=== PATIENT | male | born 1995 | race Caucasian/White ===

== ENCOUNTER 2020-02-16 16:54 | Emergency (ER) | payer OTHER ==
[2020-02-16] MEDS ORDERED: Racepinephrine INH Solution 2.25% IH ONE (17:00)
[2020-02-16] MEDS ORDERED: Sodium Chloride 3 ML UD NEBULES IH ONE (17:01)
--- NOTE | 2020-02-16 17:03 | ERPHSYRPT ---
- History of Present Illness Time Seen by Provider: 02/16/20 17:00 Source: patient Exam Limitations: no limitations Physician History: 24 years old male presented in the ER with chief complaint of throat swelling and difficulty breathing after he has taken steroid for pharyngitis since yesterday. Patient reported he is having sore throat for the last 3 days, was evaluated at urgent care yesterday, and was given prednisone for viral pharyngitis and since he started taking he started to have more swelling and soreness in the throat with some difficulty breathing. He also feels some swelling in the tongue/uvula. Denies any wheezing or stridors. Denies any history of allergic reaction/anaphylactic reaction in the past. No fever or chills reported. Timing/Duration: today, gradual onset, worse Severity: moderate Modifying Factors: Improves With: nothing Associated Symptoms: shortness of breath Allergies/Adverse Reactions: Iodinated Contrast Media Allergy (Severe, Verified 02/16/20 18:27) Swelling shrimp Allergy (Severe, Verified 02/16/20 18:27) Swelling Home Medications: Prednisone 20 mg [Deltasone 20 mg] 20 mg PO DAILY 02/16/20 [History] Hx Tetanus, Diphtheria Vaccination/Date Given: Yes Hx Influenza Vaccination/Date Given: No Hx Pneumococcal Vaccination/Date Given: No - Review of Systems Constitutional: No Symptoms Eyes: No Symptoms Ears, Nose, & Throat: Throat Pain, Throat Swelling Respiratory: Dyspnea, No Stridor Cardiac: No Symptoms Abdominal/Gastrointestinal: No Symptoms Genitourinary Symptoms: No Symptoms Musculoskeletal: No Symptoms Skin: No Symptoms Neurological: No Symptoms Psychological: No Symptoms Endocrine: No Symptoms Hematologic/Lymphatic: No Symptoms Immunological/Allergic: No Symptoms - Past Medical History Pertinent Past Medical History: No Neurological History: Other Cardiac History: No Pertinent History Respiratory History: No Pertinent History Endocrine Medical History: No Pertinent History Musculoskeletal History: No Pertinent History - Past Surgical History Past Surgical History: No - Social History Smoking Status: Never smoker Exposure to second hand smoke: No Drug Use: none Patient Lives Alone: No - Nursing Vital Signs Nursing Vital Signs: Initial Vital Signs Temperature 98.7 F 02/16/20 16:57 Pulse Rate 121 H 02/16/20 16:57 Respiratory Rate 22 02/16/20 16:57 Blood Pressure 132/84 02/16/20 16:57 O2 Sat by Pulse Oximetry 99 07/22/20 16:57 Pain Scale Pain Intensity 6 - Physical Exam General Appearance: no apparent distress Eye Exam: PERRL/EOMI, eyes nml inspection Ears, Nose, Throat Exam: pharyngeal erythema, tonsillar exudate, other (Diffuse erythema of pharynx with swollen uvula. Posterior pharynx well visible. No obvious swelling of tongue.) Respiratory Exam: normal breath sounds, lungs clear Cardiovascular Exam: regular rate/rhythm, normal heart sounds Gastrointestinal/Abdomen Exam: soft, normal bowel sounds, No tenderness Back Exam: normal inspection Extremity Exam: normal inspection Neurologic Exam: alert, oriented x 3, cooperative Skin Exam: normal color SpO2 Interpretation: normal, O2 applied O2 Delivery: Room Air - Course Nursing assessment & vital signs reviewed: Yes Ordered Tests: Active Orders 24 hr Category Date Time Status IV Insertion STAT Care 02/16/20 16:59 Active Pulse Oximetry (ED) STAT Care 02/16/20 17:31 Active CHEST 1 VIEW (PORTABLE) Stat Exams 02/16/20 16:59 Taken NECK WO CONTRAST [CT] Stat Exams 02/16/20 17:56 Taken CBC W DIFF Stat Lab 02/16/20 17:22 Completed CMP Stat Lab 02/16/20 17:22 Completed Lactic Acid Stat Lab 02/16/20 17:10 Completed VBG [VENOUS BLOOD GAS] Stat Lab 02/16/20 17:10 Completed Respiratory Therapy Assessment DAILY RT 02/16/20 17:19 Active Medication Summary Generic Name Dose Route Start Last Admin Trade Name Freq PRN Reason Stop Dose Admin Sodium Chloride 3 ml 02/16/20 17:15 02/16/20 17:10 Sodium Chloride 3 Ml Ud Nebules IH 03/17/20 17:14 3 ml [id number] SAUL Administration Discontinued Medications Generic Name Dose Route Start Last Admin Trade Name Freq PRN Reason Stop Dose Admin Albuterol Sulfate 2.5 mg 02/16/20 16:59 02/16/20 17:09 Proventil 2.5 Mg/3 Ml Neb IH 02/16/20 17:00 2.5 mg STAT ONE Administration Albuterol Sulfate Confirm 02/16/20 17:05 Proventil 2.5 Mg/3 Ml Neb Administered 02/16/20 17:06 Dose 2.5 mg IH .STK-MED ONE Diphenhydramine HCl 25 mg 02/16/20 16:59 02/16/20 17:09 Benadryl 50 Mg/Ml IV 02/16/20 17:00 25 mg STAT ONE Administration Diphenhydramine HCl Confirm 02/16/20 17:04 Benadryl 50 Mg/Ml Administered 02/16/20 17:05 Dose 50 mg .ROUTE .STK-MED ONE Epinephrine Confirm 02/16/20 17:00 Racepinephrine Inh Solution 2.25% Administered 02/16/20 17:01 Dose 0.5 ml IH .STK-MED ONE Epinephrine 0.5 ml 02/16/20 17:00 02/16/20 17:10 Racepinephrine Inh Solution 2.25% IH 02/16/20 17:01 0.5 ml STAT ONE Administration Famotidine 20 mg 02/16/20 16:59 02/16/20 17:09 Pepcid 20 Mg Vial IV 02/16/20 17:00 20 mg STAT ONE Administration Famotidine Confirm 02/16/20 17:04 Pepcid 20 Mg Vial Administered 02/16/20 17:05 Dose 20 mg IV .STK-MED ONE Sodium Chloride Confirm 02/16/20 17:01 Sodium Chloride 3 Ml Ud Nebules Administered 02/16/20 17:02 Dose 3 ml IH .STK-MED ONE Lab/Rad Data: Laboratory Result Diagrams 02/16/20 17:22 02/16/20 17:22 Laboratory Results 02/16/20 02/16/20 02/16/20 Range/Units 17:22 17:22 17:10 WBC 15.7 H (4.0-10.5) K/mm3 RBC 5.41 (4.1-5.6) M/mm3 Hgb 15.5 (12.5-18.0) gm/dl Hct 46.4 (42-50) % MCV 85.8 (78-100) fl MCH 28.7 (26-32) pg MCHC 33.4 (32-36) g/dl RDW 15.4 H (11.5-14.0) % Plt Count 335 (150-450) K/mm3 MPV 9.4 (7.5-11.0) fl Gran % 87.2 H (36.0-66.0) % Eos # (Auto) 0.01 (0-0.5) Absolute Lymphs (auto) 0.73 L (1.0-4.6) Absolute Monos (auto) 1.22 (0.0-1.3) Lymphocytes % 4.7 L (24.0-44.0) % Monocytes % 7.8 (0.0-12.0) % Eosinophils % 0.1 (0.00-5.0) % Basophils % 0.2 (0.0-0.4) % Absolute Granulocytes 13.69 H (1.4-6.9) Basophils # 0.03 (0-0.4) pO2/FiO2 Ratio 21.0 % VBG pH 7.37 (7.32-7.42) VBG pCO2 at Pat Temp 42 (42-55) mm/Hg VBG pO2 at Pat Temp 44 H (25-40) mm/Hg VBG HCO3 24.3 (22-28) meq/L VBG O2 Sat (Diego) 81.3 L (95-100) VBG Base Excess -1.1 (-2.0-2.0) VBG Hemoglobin 16.1 VBG Carboxyhemoglobin 3.6 (0.0-6.9) % T HGB POC Potassium 3.8 (3.5-5.1) Sodium 139 (137-145) mmol/L Potassium 3.7 (3.5-5.1) mmol/L Chloride 106 (98-107) mmol/L Carbon Dioxide 24 (22-30) mmol/L Anion Gap 12.2 (5-15) MEQ/L BUN 5 L (9-20) mg/dL Creatinine 0.77 (0.66-1.25) mg/dL Estimated GFR > 60.0 ML/MIN Glucose 116 H (74-106) mg/dL Lactic Acid 2.3 H (0.4-2.0) Calcium 9.4 (8.4-10.2) mg/dL Total Bilirubin 1.30 (0.2-1.3) mg/dL AST 23 (17-59) U/L ALT 36 (0-50) U/L Alkaline Phosphatase 60 (38-126) U/L Serum Total Protein 7.7 (6.3-8.2) g/dL Albumin 4.3 (3.5-5.0) g/dL - Progress Progress: improved, re-examined Progress Note: 02/16/20 19:25 24 years old is evaluated for worsening throat swelling with some difficulty breathing and swallowing after taking prednisone. Is given racemic epi and albuterol neb treatment along with Benadryl, Pepcid, on reevaluation feeling much better. He has a white count of 15, I have obtained CT neck which did rule out epiglottitis or any other acute findings. Patient is satting around 99/100% on room air with no distress. Chest x-ray negative for any acute cardiopulmonary findings. Feeling much better. Patient does have tonsillar exudates and some swelling. I would start him on Augmentin and will continue with Benadryl and Pepcid to go home. Recommended outpatient follow-up. Patient is observed more than 2 hours and did not show any signs of rebound/worsening. Stable for discharge. Discussed signs symptoms of worsening needing return to ER with patient and mom seems understanding. Counseled pt/family regarding: lab results, diagnosis, need for follow-up, rad results - Departure Departure Disposition: Home Clinical Impression: Acute pharyngitis Qualifiers: Pharyngitis/tonsillitis etiology: unspecified etiology Qualified Code(s): J02.9 - Acute pharyngitis, unspecified Allergic reaction caused by a drug Qualifiers: Encounter type: initial encounter Qualified Code(s): T78.40XA - Allergy, unspecified, initial encounter Condition: Stable Critical Care Time: Yes Critical Care Time(excluding separately billable procedures): Critical 30-74 mins Referrals: J LUIS JAVIER DO [ACTIVE STAFF] - DOCTOR,NO FAMILY [Primary Care Provider] - (1-2 days for re evaluation) Instructions: Anaphylaxis (DC) Additional Instructions: Warm salt water gargles. Take Tylenol/ibuprofen as needed. Use EpiPen as needed. Continue with antibiotics. Return to ER for worsening throat pain, swelling, difficulty breathing/stridor etc. Prescriptions: diphenhydrAMINE HCL [Benadryl] 25 mg PO Q6HPRN PRN #20 capsule PRN Reason: Allergies Amox Tr/Potass Clav. 875 mg [Augmentin 875-125 Tablet] 875 mg PO BID 10 Days #20 tablet EPINEPHrine [Epipen 0.3 MG] 0.3 mg IJ CLARIFY PRN #1 ml PRN Reason: Allergies Famotidine 20 mg [Pepcid 20 MG] 20 mg PO BID #10 tablet
[2020-02-16] MEDS ORDERED: BENADRYL 50 MG/ML ONE (17:04)
[2020-02-16] MEDS ORDERED: Pepcid 20 MG VIAL IV ONE (17:04)
[2020-02-16] MEDS ORDERED: PROVENTIL 2.5 MG/3 ML NEB IH ONE (17:05)
[2020-02-16] MEDS: PROVENTIL 2.5 MG/3 ML NEB IH ONE (17:09)
[2020-02-16] MEDS: Pepcid 20 MG VIAL IV ONE (17:09)
[2020-02-16] MEDS: BENADRYL 50 MG/ML IV ONE (17:09)
[2020-02-16] MEDS: Racepinephrine INH Solution 2.25% IH ONE (17:10)
[2020-02-16] MEDS: Sodium Chloride 3 ML UD NEBULES IH SCH (17:10)
[2020-02-16 17:29] LABS: Absolute Neutrophil Ct (ANC) 13.69 (1.4-6.9); BASOPHIL % 0.2 % (0.0-0.4); Basophil (Absolute #) 0.03 (0-0.4); Eosinophil % 0.1 % (0.00-5.0); Eosinophil (Absolute #) 0.01 (0-0.5); Hematocrit 46.4 % (42-50); Hemoglobin 15.5 gm/dl (12.5-18.0); Lymphocyte (Absolute #) 0.73 (1.0-4.6); Lymphocytes % 4.7 % (24.0-44.0); Mean Cell Volume 85.8 fl (78-100); Mean Corpuscular Hemoglobin 28.7 pg (26-32); Mean Corpuscular Hgb Concent. 33.4 g/dl (32-36); Mean Platelet Volume 9.4 fl (7.5-11.0); Monocyte (Absolute #) 1.22 (0.0-1.3); Monocytes % 7.8 % (0.0-12.0); Neutrophil % 87.2 % (36.0-66.0); Platelet Count 335 K/mm3 (150-450); Red Blood Count 5.41 M/mm3 (4.1-5.6); Red Cell Distribution Width 15.4 % (11.5-14.0); White Blood Count 15.7 K/mm3 (4.0-10.5)
[2020-02-16 17:39] LABS: ALBUMIN 4.3 g/dL (3.5-5.0); ALKALINE PHOSPHATASE 60 U/L (38-126); ANION GAP 12.2 MEQ/L (5-15); BLOOD UREA NITROGEN 5 mg/dL (9-20); CHLORIDE 106 mmol/L (98-107); Calcium 9.4 mg/dL (8.4-10.2); Carbon Dioxide 24 mmol/L (22-30); Creatinine 1 0.77 mg/dL (0.66-1.25); Glucose 116 mg/dL (74-106); Potassium 3.7 mmol/L (3.5-5.1); SGOT/AST 23 U/L (17-59); SGPT/ALT 36 U/L (0-50); SODIUM 139 mmol/L (137-145); Total Protein 7.7 g/dL (6.3-8.2)
[2020-02-16 17:43] LABS: Lactic Acid 2.3 (0.4-2.0); VBG BASE EXCESS -1.1 (-2.0-2.0); VBG CARBOXYHEMOGLOBIN 3.6 % T HGB (0.0-6.9); VBG HCO3- 24.3 meq/L (22-28); VBG HEMOGLOBIN 16.1; VBG O2 SATURATION 81.3 (95-100); VBG POTASSIUM 3.8 (3.5-5.1); VBG pH 7.37 (7.32-7.42)
[2020-02-16 19:11] VITALS: PULSE 84
[2020-02-16] MEDS ORDERED: Augmentin 875-125 Tablet ONE (19:15)
[2020-02-16] MEDS: Augmentin 875-125 Tablet PO ONE (19:16)
[2020-02-16 19:37] VITALS: BP 123/61; O2SAT 99
--- NOTE | 2020-02-16 21:51 | XRAY ---
Exam: AP portable chest film from 02/16/2020. Comparison: None. Indication: Allergic reaction. Findings: Respiratory tubing overlies the right hemithorax. The heart size and contour are normal. The eric and mediastinal structures appear unremarkable. The lungs are adequately inflated and appear clear. Pulmonary vascularity is normal. No pneumothorax or pleural effusion is seen. Minimal convexity of the lower midthoracic spine toward the right is seen. Impression: 1. No air space infiltrates, pulmonary edema, or other acute cardiopulmonary disease is seen.
--- NOTE | 2020-02-16 21:53 | XRAY ---
Exam: CT of the neck without IV contrast from 02/16/2020. CTDI: 17.79 mGy Comparison: None. Indication: 24-year-old male with sore throat/fever, rule out epiglottitis. Patient had "a reaction" to prednisone per patient. He has a seafood/shrimp/iodine allergy. Technique: Non-IV contrast axial images were obtained through the neck. Reconstructed coronal and sagittal images were created and reviewed.. Findings: The epiglottis appears thin and unremarkable. There is no CT evidence of epiglottitis. No prevertebral soft tissue swelling is seen. The hypopharynx and subglottic airway appear unremarkable. There is mild prominence of both tonsils with the left appearing slightly larger than the right. No low attenuation density is seen within either tonsil to suggest an abscess. Correlate with clinical exam. Aryepiglottic folds and vocal cords appear unremarkable. The thyroid gland appears unremarkable. The visualized upper lung gray appear clear. The visualized paranasal sinuses reveals a 7 mm convex soft tissue density at the inferior margin of the left maxillary sinus, perhaps representing a retention cyst, small polyp, or focal mucoperiosteal thickening. A small linear septation is seen at the inferior margin of the right maxillary sinus. The posterior nasopharynx appears unremarkable. The visualized parotid glands and submandibular glands appear unremarkable. No abnormal cervical lymphadenopathy is seen. On axial image #47, there is a 9 mm x 5 mm lymph node adjacent to the lateral margin of the left submandibular gland. I believe there are also a couple small submental lymph node densities, the largest measuring 9 mm in greatest diameter on axial image #45. Impression: 1. I see no CT findings to suggest acute epiglottitis. 2. The tonsils are mildly prominent with the left appearing slightly larger than the right. No low attenuation abscess is seen. Correlate clinically. 3. Other incidental findings, as discussed above.
== END 2020-02-16 19:39 | disposition home or self-care (01) ==
LOC: ED 16:54
DX: J02.9 Acute pharyngitis, unspecified (principal)
CPT/HCPCS: 36000; 36415; 70490; 71045; 80053; 82805; 83605; 85025; 94640; 94760; 96374; 96375; 99284; 99291; J1200; J7609; A9270-GY

== ENCOUNTER 2024-04-08 13:23 | Emergency (ER) | payer OTHER ==
[2024-04-08 13:38] VITALS: TEMP 97.8
[2024-04-08] MEDS ORDERED: BABY ASPIRIN 81 MG CHEW ONE (14:20)
[2024-04-08] MEDS: BABY ASPIRIN 81 MG CHEW PO ONE (14:21)
[2024-04-08 14:25] LABS: Absolute Neutrophil Ct (ANC) 5.21 x10^3/uL (1.78-5.38); BASOPHIL % 0.5 % (0.2-1.2); Basophil (Absolute #) 0.04 x10^3/uL (0.01-0.08); Eosinophil (Absolute #) 0.07 x10^3/uL (0.04-0.54); Hematocrit 44.8 % (40.1-51.0); Hemoglobin 15.3 g/dL (13.7-17.5); IMMATURE GRAN # 0.01 x10^3u/L (0.001-0.031); IMMATURE GRAN % 0.1 % (0.001-0.429); Lymphocyte (Absolute #) 1.47 x10^3/uL (1.32-3.57); Mean Cell Volume 84.5 fL (79.0-92.2); Mean Corpuscular Hemoglobin 28.9 pg (25.7-32.2); Mean Corpuscular Hgb Concent. 34.2 g/dL (32.3-36.5); Monocyte (Absolute #) 0.55 x10^3/uL (0.30-0.82); Monocytes % 7.5 % (5.3-12.2); Neutrophil % 70.9 % (34.0-67.9); Platelet Count 317 x10^3/uL (163-337); Red Cell Distribution Width 12.8 % (11.6-14.4); White Blood Count 7.4 x10^3/uL (4.23-9.07)
--- NOTE | 2024-04-08 14:33 | XRAY ---
Indication: Chest pain. Comparison: February 16, 2020 Portable chest again demonstrates normal heart and lungs. Bony thorax intact again with minimal dextroscoliosis. No new/acute findings.
[2024-04-08 14:39] LABS: ANION GAP 11.9 MEQ/L (5-15); BILIRUBIN,TOTAL 1.2 mg/dL (0.2-1.3); Calcium 9.5 mg/dL (8.4-10.2); Creatinine 1 1.13 mg/dL (0.66-1.25); EST GLOMERULAR FILTRATION RATE 91.9 ML/MIN; Potassium 4.1 mmol/L (3.5-5.1); Total Protein 6.6 g/dL (6.3-8.2)
[2024-04-08] MEDS ORDERED: Sodium Chloride 0.9% 1000 ML 1,000 ML ONE (14:39)
[2024-04-08] MEDS: Sodium Chloride 0.9% 1000 ML 1,000 ML IV STA (14:41)
--- NOTE | 2024-04-08 14:43 | ERPHSYRPT ---
- History of Present Illness Time Seen by Provider: 04/08/24 13:31 Historian: patient, family Exam Limitations: no limitations Patient Subjective Stated Complaint: pt was outside building a fire pit and began having left sided chest pain that radiates to his left shoulder and back, pt states that this has been going on for the past couple of weeks Triage Nursing Assessment: Pt elier to the ER by a coworker, hypertensive, rates chest pain as 4/10, diaphoretic, constant dull pain but then sharp pain, nausea, no edema, pulses normal, pt states that when his chest began hurting he did have a syncopal episode, 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 Patient reports he started to feel pain with some radiation to the back and left shoulder, was severe enough to make him almost syncopized for few seconds. Patient reported he was mildly diaphoretic as well when it initially hit him. Reports having off-and-on left-sided chest pain for almost 1 week but not this severe. Denies any difficulty breathing currently and pain is improved and at present 4/10 intensity dull aching. Reports feeling dizzy and lightheaded as well initially while he was working outside but no numbness tingling or focal weakness reported. Prior Chest Pain/Cardiac Workup: no prior cardiac workup Nitro Today/Relief: no nitro taken today Aspirin Treatment Today: no aspirin today Allergies/Adverse Reactions: Iodinated Contrast Media Allergy (Severe, Verified 02/16/20 18:27) Swelling prednisone Allergy (Verified 04/08/24 13:38) Anaphylactic Reaction Home Medications: No Reportable Medications [No Reported Medications] 04/08/24 [History] Hx Tetanus, Diphtheria Vaccination/Date Given: Yes Hx Influenza Vaccination/Date Given: No Hx Pneumococcal Vaccination/Date Given: No Travel Risk - International Travel Have you traveled outside of the country in past 3 weeks: No - Emerging Infectious Disease Are you exhibiting symptoms associated with any current EIDs: No - Review of Systems Constitutional: No Symptoms Eyes: No Symptoms, Foreign Body Sensation Respiratory: No Symptoms Cardiac: Chest Pain Abdominal/Gastrointestinal: No Symptoms Genitourinary Symptoms: No Symptoms Musculoskeletal: No Symptoms Skin: No Symptoms Neurological: Dizziness Psychological: No Symptoms Endocrine: No Symptoms Hematologic/Lymphatic: No Symptoms Immunological/Allergic: No Symptoms - Past Medical History Pertinent Past Medical History: Yes Neurological History: Other Cardiac History: No Pertinent History Respiratory History: No Pertinent History Endocrine Medical History: No Pertinent History Musculoskeletal History: No Pertinent History - Past Surgical History Past Surgical History: Yes Musculoskeletal: Orthopedic Surgery Other Surgical History: rt shoulder, left knee - Social History Smoking Status: Current every day smoker How long have you smoked: vapes Exposure to second hand smoke: Yes Drug Use: none Patient Lives Alone: No - Social Determinants of Health Will the patient participate in the screening: Yes Do you worry about a steady place to live?: No Do you have any problems with any of the following?: No known problems In the past 12 months,have you had to go without utilities?: No Transportation Issues: No Has anyone in your support network made you feel unsafe?: No Have you or anyone in your house had to go without enough: No - Nursing Vital Signs Nursing Vital Signs: Initial Vital Signs Temperature 97.8 F 04/08/24 13:29 Pulse Rate 98 H 04/08/24 13:29 Respiratory Rate 17 04/08/24 13:29 Blood Pressure 140/84 04/08/24 13:29 O2 Sat by Pulse Oximetry 98 04/08/24 13:29 Pain Scale Pain Intensity 4 - Physical Exam General Appearance: no apparent distress, alert Eye Exam: PERRL/EOMI Ears, Nose, Throat Exam: normal ENT inspection Neck Exam: normal inspection, non-tender, supple, full range of motion Respiratory Exam: normal breath sounds, lungs clear Cardiovascular Exam: regular rate/rhythm, normal heart sounds Gastrointestinal/Abdomen Exam: soft, normal bowel sounds, No tenderness Back Exam: normal inspection, normal range of motion, No CVA tenderness Extremity Exam: normal inspection, normal range of motion Neurologic Exam: alert, oriented x 3, cooperative, 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 Skin Exam: normal color SpO2 Interpretation: normal SpO2: 98 O2 Delivery: Room Air - Course EKG Interpreted by Me: RATE, Sinus Rhythm, NORMAL AXIS, NORMAL INTERVALS, NORMAL QRS Ordered Tests: Active Orders 24 hr Category Date Time Status Machine Rough Rounder STAT Care 04/08/24 14:05 Completed EKG-ER Only STAT Care 04/08/24 14:04 Completed IV Insertion STAT Care 04/08/24 14:04 Completed Orthostatic Vital Signs STAT Care 04/08/24 14:38 Completed CHEST 1 VIEW (PORTABLE) Stat Exams 04/08/24 14:04 Completed CBC W DIFF Stat Lab 04/08/24 14:15 Completed CK-Creatinine Phosphokinase Stat Lab 04/08/24 14:15 Completed CMP Stat Lab 04/08/24 14:15 Completed D-DIMER QUANTITATIVE Stat Lab 04/08/24 14:15 Completed LIPASE Stat Lab 04/08/24 14:15 Completed NT PRO BNPII Stat Lab 04/08/24 14:15 Completed TROPONIN Q4H Lab 04/08/24 14:15 Completed TROPONIN Q4H Lab 04/08/24 17:15 Completed Medication Summary Discontinued Medications Generic Name Dose Route Start Last Admin Trade Name Lucero PRN Reason Stop Dose Admin Aspirin 324 mg 04/08/24 14:04 04/08/24 14:21 Aspirin 81 Mg Tab.Chew PO 04/08/24 14:05 324 mg STAT ONE Administration Aspirin Confirm 04/08/24 14:20 Aspirin 81 Mg Tab.Chew Administered 04/08/24 14:21 Dose 324 mg .ROUTE .STK-MED ONE Sodium Chloride 1,000 mls @ 999 mls/hr 04/08/24 14:37 04/08/24 15:54 Sodium Chloride 0.9% 1000 Ml IV 04/08/24 15:37 Infused .Q1H1M STA Infusion Sodium Chloride Confirm 04/08/24 14:39 Sodium Chloride 0.9% 1000 Ml Administered 04/08/24 14:40 Dose 1,000 mls @ ud .ROUTE .STK-MED ONE Lab/Rad Data: Laboratory Result Diagrams 04/08/24 14:15 04/08/24 14:15 Laboratory Results 04/08/24 04/08/24 04/08/24 Range/Units 17:15 14:15 14:15 WBC (4.23-9.07) x10^3/uL RBC (4.63-6.08) x10^6/uL Hgb (13.7-17.5) g/dL Hct (40.1-51.0) % MCV (79.0-92.2) fL MCH (25.7-32.2) pg MCHC (32.3-36.5) g/dL RDW (11.6-14.4) % Plt Count (163-337) x10^3/uL MPV (9.4-12.4) fL Gran % (34.0-67.9) % Immature Gran % (Auto) (0.001-0.429) % Nucleat RBC Rel Count (0.00-0.2) % Eos # (Auto) (0.04-0.54) x10^3/uL Immature Gran # (Auto) (0.001-0.031) x10^3u/L Absolute Lymphs (auto) (1.32-3.57) x10^3/uL Absolute Monos (auto) (0.30-0.82) x10^3/uL Absolute Nucleated RBC (0.00-0.012) x10^3u/L Lymphocytes % (21.8-53.1) % Monocytes % (5.3-12.2) % Eosinophils % (0.8-7.0) % Basophils % (0.2-1.2) % Absolute Granulocytes (1.78-5.38) x10^3/uL Basophils # (0.01-0.08) x10^3/uL D-Dimer < 0.19 (0.0-0.50) mg/L Sodium (135-145) mmol/L Potassium (3.5-5.1) mmol/L Chloride (98-107) mmol/L Carbon Dioxide (22-30) mmol/L Anion Gap (5-15) MEQ/L BUN (9-20) mg/dL Creatinine (0.66-1.25) mg/dL Estimated GFR ML/MIN Glucose (74-106) mg/dL Calcium (8.4-10.2) mg/dL Total Bilirubin (0.2-1.3) mg/dL AST (17-59) U/L ALT (0-50) U/L Alkaline Phosphatase (38-126) U/L Creatine Kinase (55-170) U/L Troponin I < 0.012 < 0.012 (0.000-0.033) ng/mL NT-Pro-B Natriuret Pep 27.3 (<300) pg/mL Serum Total Protein (6.3-8.2) g/dL Albumin (3.5-5.0) g/dL Lipase (23-300) U/L 09/12/24 09/12/24 Range/Units 14:15 14:15 WBC 7.4 (4.23-9.07) x10^3/uL RBC 5.30 (4.63-6.08) x10^6/uL Hgb 15.3 (13.7-17.5) g/dL Hct 44.8 (40.1-51.0) % MCV 84.5 (79.0-92.2) fL MCH 28.9 (25.7-32.2) pg MCHC 34.2 (32.3-36.5) g/dL RDW 12.8 (11.6-14.4) % Plt Count 317 (163-337) x10^3/uL MPV 9.0 L (9.4-12.4) fL Gran % 70.9 H (34.0-67.9) % Immature Gran % (Auto) 0.1 (0.001-0.429) % Nucleat RBC Rel Count 0.0 (0.00-0.2) % Eos # (Auto) 0.07 (0.04-0.54) x10^3/uL Immature Gran # (Auto) 0.01 (0.001-0.031) x10^3u/L Absolute Lymphs (auto) 1.47 (1.32-3.57) x10^3/uL Absolute Monos (auto) 0.55 (0.30-0.82) x10^3/uL Absolute Nucleated RBC 0.00 (0.00-0.012) x10^3u/L Lymphocytes % 20.0 L (21.8-53.1) % Monocytes % 7.5 (5.3-12.2) % Eosinophils % 1.0 (0.8-7.0) % Basophils % 0.5 (0.2-1.2) % Absolute Granulocytes 5.21 (1.78-5.38) x10^3/uL Basophils # 0.04 (0.01-0.08) x10^3/uL D-Dimer (0.0-0.50) mg/L Sodium 138 (135-145) mmol/L Potassium 4.1 (3.5-5.1) mmol/L Chloride 107 (98-107) mmol/L Carbon Dioxide 23 (22-30) mmol/L Anion Gap 11.9 (5-15) MEQ/L BUN 15 (9-20) mg/dL Creatinine 1.13 (0.66-1.25) mg/dL Estimated GFR 91.9 ML/MIN Glucose 94 (74-106) mg/dL Calcium 9.5 (8.4-10.2) mg/dL Total Bilirubin 1.20 (0.2-1.3) mg/dL AST 23 (17-59) U/L ALT 25 (0-50) U/L Alkaline Phosphatase 51 (38-126) U/L Creatine Kinase 186 H (55-170) U/L Troponin I (0.000-0.033) ng/mL NT-Pro-B Natriuret Pep (<300) pg/mL Serum Total Protein 6.6 (6.3-8.2) g/dL Albumin 4.0 (3.5-5.0) g/dL Lipase 80 (23-300) U/L - Progress Progress: improved, re-examined Air Movement: good Progress Note: 04/08/24 18:42 28 years old is evaluated in the ER for left-sided chest pain, feeling dizzy lightheaded and near syncopal episode prior to arrival after he was working outside building a fire pit. Patient has some element of reproducibility in the left chest palpation. He is offered pain medication repeatedly but declined. EKG is sinus rhythm with no ST elevations. Negative troponins x 2, negative D- dimers. Chest x-ray negative for any acute cardiopulmonary findings. Normal white count, fairly unremarkable chemistries. He is given fluids and aspirin, reevaluation his pain is better. Patient has low heart score, no multiple risk factors. He is being discharged with outpatient follow-up and instructions to return for any worsening. Blood Culture(s) Obtained: No Antibiotics given: No Counseled pt/family regarding: lab results, diagnosis, need for follow-up (Patient and what about the other 1 while taking I ordered some antibiotics for him along with to take a quick infusion yeah get on the fluid and all diarrhea she can take them), rad results Medical Desision Making - Independent Historian Additional History obtained from: Spouse - Diagnostic Testing Diagnostic test were ordered, analyzed, and reviewed by me: Yes Radiological Interpretation: Reviewed by me - Risk of complications The pt has a mod risk of morbidity or mortality based on: Need for prescription drug management - Departure Departure Disposition: Home Clinical Impression: Atypical chest pain, Near syncope Condition: Stable Critical Care Time: No Referrals: DOCTOR,NO FAMILY [Primary Care Provider] - Follow up with PCP 1 day KENNEDY AGUILA [CONSULTING PHYSICIAN] - Follow up/PCP as directed (Call for appointment for reevaluation) Instructions: Chest Pain (DC) Additional Instructions: Plenty of fluids. Take Tylenol as needed. Follow-up with your primary care for reevaluation. Call for cardiology appointment. Return to ER for worsening.
[2024-04-08 14:51] LABS: NT PRO BNPII 27.3 pg/mL (<300); TROPONIN < 0.012 ng/mL (0.000-0.033)
[2024-04-08 18:04] VITALS: PULSE 56
[2024-04-08 18:34] VITALS: BP 116/71; RESP 16
[2024-04-08 18:39] VITALS: O2SAT 98
== END 2024-04-08 18:53 | disposition home or self-care (01) ==
LOC: ED 13:23
DX: R07.89 Other chest pain (principal); R55 Syncope and collapse; Z72.0 Tobacco use
CPT/HCPCS: 36000; 36415; 71045; 80053; 82550; 83690; 83880; 84484; 85025; 85379; 93005; 93041; 96360; 99284; A9270-GY